=== PATIENT | female | born 1960 | race Caucasian/White ===

== ENCOUNTER 2018-09-30 11:54 | Day surgery (SDC) | payer BC ==
[~2018-09-30] VITALS: Ht 157.5 cm; Wt 82.2 kg
[2018-09-30] MEDS ORDERED: LISI-471 PO (12:52)
[2018-09-30 12:54] VITALS: Ht 157.5 cm; Wt 82.2 kg
[2018-09-30 14:03] VITALS: BP 163/90; PULSE 75; RESP 17
--- NOTE | 2018-09-30 14:34 | PREAC ---
Date/Time of Note Date/Time of Note DATE: 09/30/18 TIME: 14:33 Anesthesia Eval and Record Evaluation Time Pre-Procedure Interview DATE: 09/30/18 TIME: 14:33 Age 58 Sex female NPO: 8 hrs Preoperative diagnosis SCREENING COLONOSCOPY Planned procedure COLONOSCOPY Past Medical History Past Medical History: Includes Cardio: HTN GI: Obesity Surgery & Anesthesia Issues No known issue Meds Anticoagulation: No Beta Reny within 24 hr: No Reason Beta Reny not given: Pt. not on B-Reny Reported Medications Lisinopril* (Lisinopril*) 20 Mg Tablet, 20 MG PO DAILY, #30 TAB 09/30/18 Meds reviewed: Yes Allergies Coded Allergies: No Known Allergy (Unverified , 09/30/18) Allergies Reviewed: Yes Labs/Studies Labs Reviewed: Reviewed by anesthesiologist test: N/A Pre-procedure Exam Last vitals Vital Signs Date Temp Pulse Resp B/P (MAP) Pulse Ox O2 O2 Flow FiO2 Time Delivery Rate 09/30/18 97.9 75 17 163/90 97 Room Air 14:03 (114) Airway: Adequate mouth opening, Adequate thyromental dist Mallampati: Mallampati II Teeth: Normal Lung: Normal Heart: Normal ASA Physical Status ASA physical status: 2 Emergency: None Planned Anesthetic General/MAC: MAC Planned Pain Management Parenteral pain med Pre-operative Attestations Prior to commencing anesthesia and surgery, the patient was re-evaluated, there was verification of: *The patient's identity *The results of appropriate recent lab work and preoperative vital signs *The above evaluation not changing prior to induction *Anesthetic plan, risk benefits, alternative and complications discussed with patient/family; questions answered; patient/family understands, accepts and wishes to proceed. Aidan Handy M.D. Sep 30, 2018 14:34
[2018-09-30] MEDS ORDERED: LIDOCAINE 100 MG SYRINGE ONE (15:00)
[2018-09-30] MEDS ORDERED: PROPOFOL 40 ML ONE (15:00)
[2018-09-30 15:35] VITALS: BP 160/90; PULSE 75; RESP 20
[2018-09-30 15:45] VITALS: BP 155/82; PULSE 70; RESP 20
[2018-09-30 15:55] VITALS: BP 158/81; PULSE 72; RESP 20
--- NOTE | 2018-10-01 08:58 | PAC ---
Date/Time of Note Date/Time of Note DATE: 10/01/18 TIME: 08:58 Post-Anesthesia Notes Post-Anesthesia Note Last documented vital signs Vital Signs Date Temp Pulse Resp B/P (MAP) Pulse Ox O2 O2 Flow FiO2 Time Delivery Rate 09/30/18 72 20 158/81 99 Room Air 15:55 (106) 09/30/18 97.9 14:03 Activity: WNL Respiratory function: WNL Cardiovascular function: WNL Mental status: Baseline Pain reasonably controlled: Yes Hydration appropriate: Yes Nausea/Vomiting absent: Yes Aidan Handy M.D. Oct 01, 2018 08:58
== END 2018-09-30 17:50 | disposition home or self-care (01) ==
LOC: GIL 11:54
PROVIDERS: ATTEND Internal Medicine Gastroenterology
DX: Z12.11 Encounter for screening for malignant neoplasm of colon (principal); Q27.33 Arteriovenous malformation of digestive system vessel; K57.30 Diverticulosis of large intestine without perforation or abscess without bleeding; D12.2 Benign neoplasm of ascending colon; I10 Essential (primary) hypertension
CPT/HCPCS: 45380; 88305; J2001; Z7610